=== PATIENT | female | born 1990 | race Caucasian/White ===

== ENCOUNTER 2017-12-18 20:16 | Emergency (ER) | payer BC ==
[~2017-12-18] VITALS: Ht 152.4 cm; Wt 53.5 kg
[2017-12-18 20:50] LABS: BASOPHILS % 0.6 % (0.0-1.0); EOSINOPHILS # (AUTO) 0.1 (0.0-0.4); EOSINOPHILS % 1.3 % (0.0-6.0); HEMATOCRIT 37.9 % (34.2-44.1); HEMOGLOBIN 13.6 g/dL (12.0-16.0); LYMPHOCYTES % 28.6 % (18.0-39.1); MEAN CORPUSCULAR HEMOGLOBIN 30.8 pg (28-32); MEAN CORPUSCULAR HGB CONC 35.9 g/dL (31-35); MEAN CORPUSCULAR VOLUME 85.7 fL (81-99); MONOCYTES # (AUTO) 0.3 (0.2-0.8); MONOCYTES % 4.6 % (4.4-11.3); NEUTROPHILS # (AUTO) 4.4 (2.1-6.9); NEUTROPHILS % 64.8 % (38.7-80.0); PLATELET COUNT 332 x10e3/uL (140-360); RED BLOOD COUNT 4.42 x10e6/uL (3.6-5.1)
[2017-12-18 20:54] LABS: CLARITY,URINE HAZY (CLEAR); COLOR,URINE YELLOW (YELLOW); KETONES,URINE NEGATIVE (NEGATIVE); LEUKOCYTE ESTERASE ,URINE 1+ (NEGATIVE); NITRITE,URINE NEGATIVE (NEGATIVE); PROTEIN,URINE DIPSTICK NEGATIVE (NEGATIVE)
[2017-12-18 20:55] LABS: BILIRUBIN,URINE NEGATIVE (NEGATIVE); URINE UROBILINOGEN 0.2 mg/dL (0.2 - 1)
[2017-12-18 20:56] LABS: PREGNANCY TEST, URINE NEGATIVE (NEGATIVE)
[2017-12-18] MEDS ORDERED: ONDANSETRON HCL INJ 2 MG/ML VIAL IV STA (21:00)
[2017-12-18] MEDS ORDERED: ONDANSETRON HCL INJ 2 MG/ML VIAL ONE (21:02)
[2017-12-18 21:11] LABS: ALANINE AMINOTRANSFERASE 10 IU/L (0-55); ALBUMIN 4.4 g/dL (3.5-5.0); ALBUMIN/GLOBULIN RATIO 1.2 (0.8-2.0); ALKALINE PHOSPHATASE 38 IU/L (40-150); AMYLASE 53 U/L (25-125); ANION GAP 15.4 mmol/L (8-16); BLOOD UREA NITROGEN 10 mg/dL (7-26); BUN/CREATININE RATIO 12 (6-25); CALCIUM 9.9 mg/dL (8.4-10.2); CARBON DIOXIDE 21 mmol/L (22-29); CHLORIDE 105 mmol/L (98-107); CREATININE, SERUM 0.82 mg/dL (0.57-1.11); EST GLOMERULAR FILTRATION RATE > 60 ML/MIN (60-); GLUCOSE 107 mg/dL (74-118); LIPASE 20 U/L (8-78); POTASSIUM 3.4 mmol/L (3.5-5.1); SODIUM 138 mmol/L (136-145)
[2017-12-18 21:28] LABS: EPITHELIAL CELLS,URINE MANY /LPF
[2017-12-18 21:29] LABS: BACTERIA,URINE MODERATE /HPF
--- NOTE | 2017-12-18 21:36 | Diagnostic Imaging Report ---
ABDOMEN ACUTE SERIES W/PA CXR Clinical history: Abdominal pain Technique: AP view abdomen, supine and upright, frontal view of the chest Comparison: None Findings: Abdomen: No dilated loops of small or large bowel. Mild stool seen throughout the colon. No free air. Other: Normal appearance of the heart, mediastinum, lungs, and pleural spaces. Impression: Nonobstructive bowel gas pattern. Signed by: Dr Elisabet Narayanan MD on 12/18/2017 9:32 PM
== END 2017-12-18 21:50 | disposition home or self-care (01) ==
LOC: ER 20:16
DX: R10.9 Unspecified abdominal pain (principal); R10.2 Pelvic and perineal pain; R11.0 Nausea; N30.90 Cystitis, unspecified without hematuria; K59.00 Constipation, unspecified
CPT/HCPCS: 36415; 74022; 80053; 81001; 81025; 82150; 83690; 85025; 99284; J2405